=== PATIENT | female | born 1960 | race American Indian/Alaskan Native ===

== ENCOUNTER 2017-06-08 09:07 | Emergency (ER) | payer MEDICARE ==
--- NOTE | 2017-06-08 09:39 | Emergency Department Report ---
Minor Respiratory - HPI Chief Complaint: Upper Respiratory Infection Stated Complaint: FLU LIKE SYMPTOMS/CHEST PAIN WITH COUGH Time Seen by Provider: 06/08/17 09:38 Duration: 2 Days Pain Location: Throat Severity: moderate Minor Respiratory: Yes Rhinorrhea, Yes Sore Throat, Yes Able to Tolerate Fluids , Yes Cough, Yes Sick Contacts (living in homeless nursing home), No Ear Pain, No Hemoptysis, No Chest Pain, No Shortness of Breath, No Fever Other History: This is a 56 y.o. A.A. female that persents with cough and sore throat for 2 days. History of asthma, COPD, and current smoker. She is using long acting and short acting inhalers. Patient reports having chest tightness with coughs and body aches. She is only using inhalers for symptom relief. States cough started out productive with yellow mucous. Reports symptoms are worse when she go outside. Denies chest pain, wheezing, difficulty swallowing, drooling, hoarsness, and nauesa/vomiting. ED Review of Systems ROS: Stated complaint: FLU LIKE SYMPTOMS/CHEST PAIN WITH COUGH Other details as noted in HPI Constitutional: chills, fever (yesterday 102.0). denies: diaphoresis, malaise, weakness ENT: throat pain, congestion. denies: ear pain, dental pain, hearing loss, epistaxis Respiratory: denies: cough, shortness of breath, SOB with exertion, wheezing Cardiovascular: denies: chest pain, palpitations, dyspnea on exertion, syncope Gastrointestinal: denies: abdominal pain, nausea, vomiting, diarrhea, constipation Musculoskeletal: myalgia (generalized body aches). denies: back pain, joint swelling, arthralgia Neurological: denies: headache, weakness, paresthesias Psychiatric: denies: anxiety, depression ED Past Medical Hx - Past Medical History Previous Medical History?: Yes Hx Arthritis: Yes Hx Psychiatric Treatment: Yes (ETOH abuse, Drug use) Hx Asthma: Yes Hx COPD: Yes Additional medical history: DJD, vision impaired, Neck pain and bulging disc - Surgical History Past Surgical History?: No - Social History Smoking Status: Current Every Day Smoker - Medications Home Medications: Home Medications Medication Instructions Recorded Confirmed Last Taken Type Benzonatate 200 mg PO TID PRN #20 capsule 06/08/17 Unknown Rx Fluticasone [Flonase] 1 spray NS QDAY #1 bottle 06/08/17 Unknown Rx Ibuprofen 800 mg PO Q6H PRN #20 tablet 06/08/17 Unknown Rx Oseltamivir [Tamiflu] 75 mg PO BID 5 Days #10 cap 06/08/17 Unknown Rx Minor Respiratory Exam - Exam General: Vital signs noted. No distress. Alert and acting appropriately. HEENT: Yes Pharyngeal Erythema, Yes Moist Mucous Membranes, Yes Rhinorrhea ( mildly congested turbinates, clear discharge), No Pharyngeal Exudates, No Conjuctival Injection, No Frontal Tenderness, No Maxillary Tenderness Ear: Neither TM Bulge, Neither TM Erythema, Neither EAC Pain, Neither EAC Discharge Neck: Yes Supple, No Adenopathy Lungs: Yes Good Air Exchange, Yes Cough, No Wheezes, No Ronchi, No Stridor, No Labored Respirations, No Retractions, No Use of Accessory Muscles, No Other Abnormal Lung Sounds Heart: Yes Regular, No Murmur Abdomen: Yes Normal Bowel Sounds, No Tenderness, No Peritoneal Signs Skin: No Rash, No Edema Neurologic: Alert and oriented, no deficits. Musculoskeletal: Unremarkable. ED Course Vital Signs 06/08/17 09:11 Temperature 98.8 F Pulse Rate 101 H Respiratory 20 Rate Blood Pressure 151/93 O2 Sat by Pulse 100 Oximetry ED Medical Decision Making - Medical Decision Making This is a 56 y.o. female that presents with cough, sore throat, and body aches for 2 days. History of Asthma, COPD, and current smoker. Patient examined by me. Vitals stable and in no distress. Given motirn 800 mg po once in ER. Obtained rapid influenza and strep. Positive for influenza A, strep negative. Treat outpatient with supportive care. Start tamiflu, ibuprofen, benzonatate, and flonase. Discussed plan of care with patient. She agreed with plan. Discharged home in stable condition. F/U with [facility] in 2-3 days. Critical care attestation.: If time is entered above; I have spent that time in minutes in the direct care of this critically ill patient, excluding procedure time. ED Disposition Clinical Impression: Influenza A Disposition: DC-01 TO HOME OR SELFCARE Is pt being admited?: No Does the pt Need Aspirin: No Condition: Stable Instructions: Influenza (ED) Additional Instructions: Avoid large crowds to prevent transmission of virus. Increase fluid intake to prevent dehydration. Wash hands frequently. Take tylenol or ibuprofen every 4-6 hours for relief of headache, fever, and body aches. Follow up with primary care provider in 2-3 days if symptoms are not improving. Prescriptions: Benzonatate 200 mg PO TID PRN #20 capsule PRN Reason: Cough Fluticasone [Flonase] 1 spray NS QDAY #1 bottle Ibuprofen 800 mg PO Q6H PRN #20 tablet PRN Reason: Pain Oseltamivir [Tamiflu] 75 mg PO BID 5 Days #10 cap Referrals: [facility] [place] [Outside] - 3-5 Days [facility] [Outside] - 3-5 Days [facility] [Outside] - 3-5 Days Time of Disposition: 10:56 Print Language: TURKISH
[2017-06-08] MEDS ORDERED: MOTRIN PO ONE (10:46)
[2017-06-08 11:11] VITALS: BP 155/85
== END 2017-06-08 11:09 | disposition home or self-care (01) ==
LOC: ED 09:07
DX: J11.1 Influenza due to unidentified influenza virus with other respiratory manifestations (principal); J44.9 Chronic obstructive pulmonary disease, unspecified
CPT/HCPCS: 87116; 87400; 87430